=== PATIENT | female | born 1955 | race Asian ===

== ENCOUNTER 2018-05-20 15:29 | Emergency (ER) | payer BC ==
[~2018-05-20] VITALS: Ht 152.4 cm; Wt 57.6 kg
[2018-05-20 15:35] VITALS: BP_SYST 150
[2018-05-20 16:10] LABS: HEMATOCRIT 38.9 % (36-48); MEAN CORPUSCULAR HEMOGLOBIN 30 pg (27-31); MEAN CORPUSCULAR HGB CONC 34 % (32-36); MEAN CORPUSCULAR VOLUME 89 fL (79.0-98.0); PLATELET COUNT (AUTO) 234 K/uL (130-430); RED BLOOD CELL COUNT(AUTO) 4.39 MIL/uL (4.2-6.2); RED CELL DISTRIBUTION WIDTH 12.7 % (9.0-15.0); WHITE BLOOD COUNT (AUTO) 7.6 K/uL (4.8-10.8)
[2018-05-20 16:11] LABS: BASOPHILS % (AUTO) 0.5 % (0.0-2.0); EOSINOPHILS # (AUTO) 0.2 K/uL (0.0-0.4); EOSINOPHILS % (AUTO) 2.4 % (0.0-4.0); LYMPHOCYTES # (AUTO) 1.7 K/uL (1.0-5.5); LYMPHOCYTES % (AUTO) 22.8 % (20.5-51.5); MONOCYTES # (AUTO) 0.5 K/uL (0.0-1.0); MONOCYTES % (AUTO) 6.4 % (1.7-9.3); NEUTROPHILS # (AUTO) 5.2 K/uL (1.8-7.7); NEUTROPHILS % (AUTO) 67.9 % (40.0-70.0)
[2018-05-20 16:13] LABS: ANION GAP 7 (5-15); CHLORIDE 103 mmol/L (98-107); CREATININE 0.82 mg/dL (0.55-1.30); GLUCOSE 118 mg/dL (70-99); POTASSIUM 4.6 mmol/L (3.5-5.1); SODIUM SERUM 140 mmol/L (136-145); UREA NITROGEN, BLOOD 14 mg/dL (8-21)
[2018-05-20 16:16] LABS: GFR AFRICAN AMERICAN 91 mL/min (>90)
[2018-05-20 16:21] LABS: ALANINE AMINOTRANSFERASE 23 U/L (12-78); ALBUMIN 3.9 g/dL (3.4-4.8); ASPARTATE AMINOTRANSFERASE 20 U/L (10-37); TOTAL BILIRUBIN 0.6 mg/dL (0.0-1.0)
[2018-05-20] MEDS ORDERED: IBUPROFEN 800 MG TABLET PO ONE (17:15)
[2018-05-20 17:35] VITALS: BP_SYST 132
== END 2018-05-20 17:35 | disposition home or self-care (01) ==
LOC: SED 15:29
DX: R07.89 Other chest pain (principal); I10 Essential (primary) hypertension
CPT/HCPCS: 36415; 71045; 71100; 80053; 84484; 85025; 93005; 99284